=== PATIENT | female | born 1995 | race Caucasian/White ===

== ENCOUNTER 2019-05-22 12:04 | Emergency (ER) | payer OTHER ==
[~2019-05-22] VITALS: Ht 170.2 cm; Wt 100.0 kg
[2019-05-22] MEDS ORDERED: METHOCARBAMOL 500 MG TABLET PO ONE (13:30)
[2019-05-22] MEDS ORDERED: KETOROLAC TROMETHAMINE 60 MG/2 ML VIAL IM ONE (13:30)
[2019-05-22 15:41] VITALS: BP 122/69
== END 2019-05-22 15:41 | disposition home or self-care (01) ==
LOC: EMS 12:05
DX: M54.40 Lumbago with sciatica, unspecified side (principal)
CPT/HCPCS: 72100; 81002; 81025; 96372; 99283; J1885

== ENCOUNTER 2022-07-08 18:51 | Emergency (ER) | payer OTHER ==
[~2022-07-08] VITALS: Ht 175.3 cm; Wt 115.0 kg
[2022-07-08 19:22] VITALS: BP 118/73
[2022-07-08] MEDS ORDERED: ACETAMINOPHEN 500 MG TABLET PO ONE (19:30)
[2022-07-08] MEDS ORDERED: AMOX TR/POT CLAV 875 MG/125 MG TABLET PO ONE (19:30)
[2022-07-08] MEDS ORDERED: IBUPROFEN 600 MG TABLET PO ONE (19:30)
[2022-07-08 19:31] LABS: COVID AG,FIA SOURCE NASOPHARYNGEAL
[2022-07-08 19:45] LABS: RAPID GROUP A STREP NEGATIVE (NEGATIVE)
[2022-07-08 19:53] LABS: INFLUENZA TYPE A NEGATIVE FOR TYPE A (NEGATIVE); INFLUENZA TYPE B NEGATIVE FOR TYPE B (NEGATIVE)
[2022-07-08] MEDS ORDERED: AMOX1TAB16 PO (19:57)
== END 2022-07-08 20:02 | disposition home or self-care (01) ==
LOC: EMS 18:52
DX: J32.9 Chronic sinusitis, unspecified (principal); M54.40 Lumbago with sciatica, unspecified side; Z20.822 Contact with and (suspected) exposure to COVID-19
CPT/HCPCS: 87430; 87804; 99284; Z7502; Z7610